=== PATIENT | male | born 1945 | race Caucasian/White ===

== ENCOUNTER → 2020-10-19 | Day surgery (SDC) | payer OTHER, MEDICARE ==
--- OUTSIDE RECORDS SUMMARY | 2020-10-19 09:15 | XMS REPORT | Continuity of Care Document ---
:1945 Author Organization [facility] t Address 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 ural male [facility] - urethral urethral Memori a stricture stricture l [facility] Prostate Prostate Diagnosis Active [facility] cancer cancer [facility] Allergies, Adverse Reactions, Alerts Allergy Allergy Status Severity Reaction(s) Onset Inactive Treating Comm ents Source Name Type Date Date Clinician penicill Adverse Active Info Not [facility] Reaction Available [facility] Tetanus Adverse Active Info Not [facility] Reaction Available [facility] - [facility] Medications Ordered Filled Start Stop Current Ordering Indication Dosage Frequency Signature Comments Components Source Medication Medication Date Date Medication? Clinician (SIG) Name Name Ciprofloxac Ciprofloxac 2018- No Abby [address] [facility] in HCl in HCl 04-06 Flakito [facility] - 00:00: 00:00 [facility]oria 00 :00 [facility] Multi Multi Yes Abby [address] [facility] Vitamin Vitamin [place] [facility] Atorvastati Atorvastati Yes Abby [address] [facility] n Calcium n Calcium Flakito [facility] Nexium Nexium Yes [facility] 1 capsule [facility] Lumigan Lumigan Yes Abby [address] [facility] [place] into [facility] eye in the l evening Outpati ent Clinics Fiber Fiber Yes Abby not [facility] Flakito defined [facility] Procedures This patient has no known procedures. Encounters Start End Encounter Admission Attending Care Care Encounter Source Date/Time Date/Time Type Type Clinicians Facility Department ID 2020-10-02 2020-10-02 Office RosemaryCHARITY [id number] 08:36:49 09:29:49 Visit Damien FERNÁNDEZ [id number] IANEIL [id number] [place] [id number] AND KENDALL [facility] 2020-10-02 2020-10-02 Orders Doctor ROSELINE [id number] 00:00:00 00:00:00 Only Unassigned, BIANCA [id number] [place] [facility] [id number] 2019-10-31 2019-10-31 [facility] [id number] [facility] 10:15:00 10:15:00 t Specialty/U Cynthia kes - Specialty rology [facility] /Urology Clinic l Clinic Outpati ent Clinics 2019-07-21 2019-07-21 [facility] [id number] [facility] 10:45:00 10:45:00 t Specialty/U Cynthia kes - Specialty rology Memori a /Urology Clinic l Clinic Outpati ent Clinics 2018-04-06 2018-04-06 [facility] [id number] [facility] [address] 09:30:00 09:30:00 t Specialty/U Cynthia kes - Specialty rology [facility] a /Urology Clinic l Clinic Outpati ent Clinics 2018-04-02 2018-04-02 [facility] [id number] [facility] 16:04:00 16:04:00 t Specialty/U Cynthia kes - Specialty rology [facility] a /Urology Clinic l Clinic Outpati ent Clinics 2018-03-16 2018-03-16 [facility] [id number] [facility] 11:00:00 11:00:00 t Specialty/U Cynthia kes - Specialty rology [facility] 2018-03-11 2018-03-11 Outpatient Tha Jeffery [id number] [facility] 14:21:00 14:21:00 t Specialty/U Cynthia kes - Specialty rology [facility] a /Urology Clinic [facility] 2018-02-04 2018-02-04 Outpatient Tha Jeffery [id number] [facility] 11:00:00 11:00:00 t Specialty/U Cynthia kes - Specialty rology [facility] a /[facility]rology Clinic [facility] Results This patient has no known results.
== END ==
LOC: FNA 09:05
PROVIDERS: ATTEND Otolaryngology
DX: R22.1 Localized swelling, mass and lump, neck (principal); Z53.9 Procedure and treatment not carried out, unspecified reason